=== PATIENT | female | born 1985 | race American Indian/Alaskan Native ===

== ENCOUNTER 2016-07-17 05:08 | Emergency (ER) | payer SELFPAY ==
--- NOTE | 2016-07-17 09:42 | XRay Report ---
FINAL REPORT PROCEDURE: XR FOOT 3 RT TECHNIQUE: AP, lateral, and obliques views HISTORY: Right foot swollen, reddened, and peeling COMPARISON: None FINDINGS: Pes planus is present. There is no evident fracture or dislocation. Joint spaces are maintained. There is no foreign body. IMPRESSION: Pes planus. Otherwise unremarkable exam.
--- NOTE | 2016-07-17 10:26 | Emergency Department Report ---
HPI - General Chief Complaint: Extremity Injury, Lower Time Seen by Provider: 07/17/16 07:36 - HPI HPI: 30-year-old female presents today with right second toe pain and swelling 3 days and right foot skin infection 9 months that comes and goes and has worsened. Denies bleeding or drainage. Denies injury or trauma. Positive for nausea. Describes her pain as a 7 out of 10 throbbing pain that comes and goes at rest and is worse with weightbearing. Denies numbness, weakness, paresthesias. Denies trying any medication for pain relief. Denies fever, chills, vomiting, chest pain, shortness of breath, abdominal pain. ED Past Medical Hx - Past Medical History Previous Medical History?: No - Surgical History Past Surgical History?: No - Social History Smoking Status: Never Smoker Substance Use Type: None - Medications Home Medications: Home Medications Medication Instructions Recorded Confirmed Last Taken Type Cephalexin [Keflex] 500 mg PO QID #20 cap 07/17/16 Unknown Rx Naproxen [Naprosyn] 500 mg PO BID #30 tablet 07/17/16 Unknown Rx Sulfamethoxazole/Trimethoprim 1 each PO BID #10 tablet 07/17/16 Unknown Rx [Bactrim DS TAB] ED Review of Systems ROS: Stated complaint: SWOLLEN MIDDLE TOE RT FOOT Other details as noted in HPI Constitutional: denies: chills, fever, malaise Eyes: denies: eye pain ENT: denies: ear pain, throat pain, congestion Respiratory: denies: cough, shortness of breath, wheezing Cardiovascular: denies: chest pain, palpitations Endocrine: no symptoms reported Gastrointestinal: denies: abdominal pain, nausea, vomiting Musculoskeletal: joint swelling, arthralgia Skin: denies: rash Neurological: denies: headache, weakness, numbness, paresthesias Physical Exam - Physical Exam Vital Signs: Vital Signs 07/17/16 06:05 Temperature 98.0 F Pulse Rate 101 H Respiratory 18 Rate Blood Pressure 144/92 O2 Sat by Pulse 100 Oximetry Physical Exam: GENERAL: The patient is well-developed and well-nourished. Patient is in NAD. HEAD: Normocephalic. Atraumatic. CHEST/LUNGS: Clear to auscultation throughout. HEART/CARDIOVASCULAR: Regular rate and rhythm. ABDOMEN: Abdomen is soft, nontender. No guarding or rebound tenderness. RIGHT FOOT: Full ankle ROM. Erythema, edema and tenderness to palpation noted over the base of 2nd toe. Positive for erythema and edema of the dorsal aspect of the foot, warm to touch. No drainage noted. Normal sensation. Peripheral pulses intact. Capillary refill less than 2 seconds. NEURO: Alert and oriented x 3. Antalgic gait. ED Course Vital Signs 07/17/16 06:05 Temperature 98.0 F Pulse Rate 101 H Respiratory 18 Rate Blood Pressure 144/92 O2 Sat by Pulse 100 Oximetry ED Medical Decision Making - Lab Data Vital Signs 07/17/16 07/17/16 06:05 10:58 Temperature 98.0 F 98.2 F Pulse Rate 101 H 79 Respiratory 18 18 Rate Blood Pressure 144/92 Blood Pressure 132/90 [Left] O2 Sat by Pulse 100 99 Oximetry - Radiology Data Radiology results: report reviewed Right foot x-ray: Pes planus is present. There is no evident fracture or dislocation. Joint spaces are maintained. There is no foreign body. - Medical Decision Making 30-year-old female presents today with right second toe pain and swelling 3 days and a skin infection over the dorsal aspect of right foot 9 months. Patient is in no acute distress at this time. She will be discharged home and is encouraged to follow up with a primary care provider. She will be sent home on naproxen, Keflex and is encouraged to return to the emergency room for any worsening symptoms. Critical care attestation.: If time is entered above; I have spent that time in minutes in the direct care of this critically ill patient, excluding procedure time. ED Disposition Clinical Impression: Cellulitis of foot Toe pain Qualifiers: Laterality: right Qualified Code(s): M79.674 - Pain in right toe(s) Disposition: DISCHARGED TO HOME OR SELFCARE Is pt being admited?: No Does the pt Need Aspirin: No Condition: Stable Instructions: Arthralgia (ED), Cellulitis (ED) Additional Instructions: Follow with primary care provider. [facility] emergency department if symptoms worsen. Prescriptions: Sulfamethoxazole/Trimethoprim [Bactrim DS TAB] 1 each PO BID #10 tablet Cephalexin [Keflex] 500 mg PO QID #20 cap Naproxen [Naprosyn] 500 mg PO BID #30 tablet Referrals: KAI TOM MD [Primary Care Provider] - 3-5 Days GABY WALLS MD [Staff Physician] - 3-5 Days [facility] [Outside] - 3-5 Days Forms: Work/School Release Form(ED) Time of Disposition: 10:40
[2016-07-17 11:00] VITALS: BP 132/90
== END 2016-07-17 10:58 | disposition home or self-care (01) ==
LOC: ED 05:08
DX: L03.031 Cellulitis of right toe (principal); M79.674 Pain in right toe(s)
CPT/HCPCS: 81025